=== PATIENT | female | born 1975 | race Caucasian/White ===

== ENCOUNTER 2016-10-17 21:16 | Emergency (ER) | payer OTHER ==
--- NOTE | 2016-10-17 21:25 | PDOC ---
Rapid Medical Evaluation Chief Complaint: Nausea/Vomiting Time Seen by Provider: 10/17/16 21:22 Medical Evaluation: Allergies Allergy/AdvReac Type Severity Reaction Status Date / Time No Known Allergies Allergy Verified 10/17/16 21:20 10/17/16 21:22 41 year old female with history of hypothyroidism, renal colic, and tubal ligation with two weeks of abdominal pain and cramping with nausea/vomiting and inability to eat. Symptoms proceeded by throat pain/cold symptoms. Pain worse with laying on left side. -Labs including CBC, comp, UA, serum -To Main ED for further evaluation
[2016-10-17 21:30] VITALS: BP 122/67; PULSE 87; TEMP 97.6; BMI 21.9
[2016-10-17 21:59] LABS: BASOPHIL 0.5 % (0-2.0); EOSINOPHIL 13.4 % (0-4.5); MCH 27.6 pg (25.7-33.7); MCHC 33.6 g/dl (32.0-36.0); MEAN CELL VOLUME 82.1 fl (80-96); NEUTROPHILS 40.4 % (42.8-82.8); PLATELET COUNT 284 K/MM3 (134-434); RDW 13.4 % (11.6-15.6); WHITE BLOOD COUNT 7.2 K/mm3 (4.0-10.0)
[2016-10-17 22:25] LABS: URINE APPEARANCE CLEAR; URINE BILIRUBIN NEGATIVE (NEGATIVE); URINE COLOR YELLOW; URINE GLUCOSE (UA) NEGATIVE (NEGATIVE); URINE KETONE NEGATIVE (NEGATIVE); URINE NITRITE NEGATIVE (NEGATIVE); URINE PROTEIN NEGATIVE (NEGATIVE); URINE UROBILINOGEN 2.0 E.U/dl E.U./dl (0.2-1.0)
[2016-10-17 22:29] LABS: URINE BLOOD 1+ (NEGATIVE); URINE LEUK ESTERASE TRACE (NEGATIVE)
[2016-10-17 22:39] LABS: ALBUMIN 3.8 g/dl (3.4-5.0); ALK PHOS 46 U/L (45-117); ANION GAP 10 (8-16); BILIRUBIN,TOTAL 0.3 mg/dL (0.2-1.0); CALCIUM 8.9 mg/dL (8.5-10.1); CO2 24 mmol/L (21-32); CREATININE 0.6 mg/dL (0.55-1.02); GLUCOSE,RANDOM 93 mg/dL (74-106); SGOT/AST 17 U/L (15-37); SGPT/ALT 16 U/L (12-78)
[2016-10-17 23:05] LABS: URINE BACTERIA RARE /hpf (NONE SEEN); URINE MUCUS MANY; URINE RBC 4 /hpf (0-3); URINE WBC 2 /hpf (3-5)
[2016-10-17] MEDS ORDERED: ONDANSETRON 4 MG/2 ML VIAL ONE (23:41)
[2016-10-17] MEDS ORDERED: ONDANSETRON 4 MG/2 ML VIAL IVPUSH ONE (23:45)
[2016-10-17] MEDS ORDERED: SODIUM CHLORIDE 1,000 ML IV STA (23:45)
--- NOTE | 2016-10-17 23:46 | PDOC ---
History of Present Illness - History of Present Illness Initial Comments: 10/17/16 23:46 The patient is a 41 year old female with a past medical history of hypothyroidism, renal colic, tubal ligation presents to the emergency department with a complaint of abdominal pain for two weeks. Patient noted all her symptoms began approximately two weeks ago, starting with a cold. Patient had a sore throat, runny nose. Two days after the cold had started she developed abdominal cramps and nausea. Patients cold symptoms have resolved however she continues to have persistent diffuse abdominal pain, persistent nausea and vomiting. 4-5 days ago she noticed abdominal distention . Patient reports dizziness. Denies fever, chills. Denies chest pain, shortness of breath. 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 <Joaquin Fang - Last Filed: 10/18/16 01:28> <Katiuska Knight - Last Filed: 10/19/16 00:50> - General Chief Complaint: Nausea/Vomiting Stated Complaint: STOMACH CRAMPS/VOMITING Time Seen by Provider: 10/17/16 21:22 Past History <Joaquin Fang - Last Filed: 10/18/16 01:28> - Past Medical History Anemia: No Asthma: No Cancer: No Cardiac Disorders: No CVA: No COPD: No CHF: No Dementia: No Diabetes: No GI Disorders: Yes (REFLUX, COLON POLYP) Disorders: No HTN: No Hypercholesterolemia: No Kidney Stones: Yes Liver Disease: No Seizures: No Thyroid Disease: Yes (HYPOTHYROID) - Surgical History Abdominal Surgery: No Appendectomy: No Cardiac Surgery: No Cholecystectomy: No Lung Surgery: No Neurologic Surgery: No Orthopedic Surgery: No - Immunization History Immunization Up to Date: Yes - Psycho/Social/Smoking Cessation Hx Anxiety: No Suicidal Ideation: No Smoking Status: No Smoking History: Never smoked Have you smoked in the past 12 months: No Number of Cigarettes Smoked Daily: 0 Hx Alcohol Use: No Drug/Substance Use Hx: No Substance Use Type: None Hx Substance Use Treatment: No <Katiuska Knight - Last Filed: 10/19/16 00:50> - Past Medical History Allergies/Adverse Reactions: Allergies Allergy/AdvReac Type Severity Reaction Status Date / Time No Known Allergies Allergy Verified 10/17/16 21:20 Home Medications: Ambulatory Orders Levothyroxine [Synthroid -] 88 mcg PO AM 02/26/14 Review of Systems - Review of Systems Able to Perform ROS?: Yes Comments:: 10/17/16 23:46 CONSTITUTIONAL: Absent: fever, chills, diaphoresis, generalized weakness, malaise, loss of appetite HEENT: Absent: rhinorrhea, nasal congestion, throat pain, throat swelling, difficulty swallowing, mouth swelling, ear pain, eye pain, visual Changes CARDIOVASCULAR: Absent: chest pain, syncope, palpitations, irregular heart rate, lightheadedness , peripheral edema RESPIRATORY: Absent: cough, shortness of breath, dyspnea with exertion, orthopnea, wheezing, stridor, hemoptysis GASTROINTESTINAL: Present: abdominal pain, abdominal distension, nausea, vomiting. Absent: diarrhea, constipation, melena, hematochezia GENITOURINARY: Absent: dysuria, frequency, urgency, hesitancy, hematuria, flank pain, genital pain MUSCULOSKELETAL: Absent: myalgia, arthralgia, joint swelling SKIN: Absent: rash, itching, pallor HEMATOLOGIC/IMMUNOLOGIC: Absent: easy bleeding, easy bruising, lymphadenopathy, frequent infections ENDOCRINE: Absent: unexplained weight gain, unexplained weight loss, heat intolerance, cold intolerance NEUROLOGIC: Present: dizziness. Absent: headache, focal weakness or paresthesias,unsteady gait, seizure, mental status changes, bladder or bowel incontinence PSYCHIATRIC: Absent: anxiety, depression, suicidal or homicidal ideation, hallucinations. <Joaquin Fang - Last Filed: 10/18/16 01:28> *Physical Exam - Vital Signs Last Vital Signs Temp Pulse Resp BP Pulse Ox 97.6 F 87 18 122/67 99 10/17/16 21:20 10/17/16 21:20 10/17/16 21:20 10/17/16 21:20 10/17/16 21:20 - Physical Exam Comments: 10/17/16 23:46 GENERAL: Well developed, well nourished. Awake and alert. No acute distress. HEENT: Normocephalic, atraumatic. PERRLA, EOMI. No conjunctival pallor. Sclera are non- icteric. Moist mucous membranes. Oropharynx is clear. NECK: Supple. Full ROM. No JVD. Carotid pulses 2+ and symmetric, without bruits. No thyromegaly. No lymphadenopathy. CARDIOVASCULAR: Regular rate and rhythm. No murmurs, rubs, or gallops. Distal pulses are 2+ and symmetric. PULMONARY: No evidence of respiratory distress. Lungs clear to auscultation bilaterally. No wheezing, rales or rhonchi. ABDOMINAL: Soft. scattered tenderness, worse in the RLQ. slightly distended. No rebound or guarding. No organomegaly. Normoactive bowel sounds. MUSCULOSKELETAL Normal range of motion at all joints. No bony deformities or tenderness. No CVA tenderness. EXTREMITIES: No cyanosis. No clubbing. No edema. No calf tenderness. SKIN: Warm and dry. Normal capillary refill. No rashes. No jaundice. NEUROLOGICAL: Alert, awake, appropriate. Gait is normal without ataxia. PSYCHIATRIC: Cooperative. Good eye contact. Appropriate mood and affect. <Joaquin Fang - Last Filed: 10/18/16 01:28> - Vital Signs Last Vital Signs Temp Pulse Resp BP Pulse Ox 97.6 F 87 18 122/67 99 10/17/16 21:20 10/17/16 21:20 10/17/16 21:20 10/17/16 21:20 10/17/16 21:20 <Katiuska Knight - Last Filed: 10/19/16 00:50> ED Treatment Course - LABORATORY CBC & Chemistry Diagram: 10/17/16 21:45 10/17/16 21:45 - ADDITIONAL ORDERS Additional order review: Laboratory Results 10/17/16 10/17/16 21:45 21:45 Sodium 140 Potassium 4.0 Chloride 106 Carbon Dioxide 24 Anion Gap 10 BUN 12 D Creatinine 0.6 Creat Clearance w eGFR > 60 Random Glucose 93 Calcium 8.9 Total Bilirubin 0.3 D AST 17 ALT 16 Alkaline Phosphatase 46 Total Protein 7.0 Albumin 3.8 Lipase 397 H Serum , Qual Negative Urine Color Yellow Urine Appearance Clear Urine pH 6.0 Urine Protein Negative Urine Glucose (UA) Negative Urine Ketones Negative Urine Blood 1+ H Urine Nitrite Negative Urine Bilirubin Negative Urine Urobilinogen 2.0 e.u/dl H Ur Leukocyte Esterase Trace H Urine RBC 4 Urine WBC 2 Ur Epithelial Cells Few Urine Bacteria Rare Urine Mucus Many 10/17/16 21:45 RBC 4.04 MCV 82.1 MCHC 33.6 RDW 13.4 MPV 7.0 L Neutrophils % 40.4 L D Lymphocytes % 38.0 D Monocytes % 7.7 Eosinophils % 13.4 H D Basophils % 0.5 - RADIOLOGY Radiology Studies Ordered: 10/18/16 01:28 US abdomen Coarse liver echotexture, possibly steatosis unremarkable gallbladder, right kidney and visualized aorta and pancreas. No Biliary dilation Electronically signed by Dr. Chey Edouard MD from imaging refrigeration service inspector <Joaquin Fang - Last Filed: 10/18/16 01:28> - LABORATORY CBC & Chemistry Diagram: 10/17/16 21:45 10/17/16 21:45 - ADDITIONAL ORDERS Additional order review: Laboratory Results 10/17/16 10/17/16 21:45 21:45 Sodium 140 Potassium 4.0 Chloride 106 Carbon Dioxide 24 Anion Gap 10 BUN 12 D Creatinine 0.6 Creat Clearance w eGFR > 60 Random Glucose 93 Calcium 8.9 Total Bilirubin 0.3 D AST 17 ALT 16 Alkaline Phosphatase 46 Total Protein 7.0 Albumin 3.8 Lipase 397 H Serum , Qual Negative Urine Color Yellow Urine Appearance Clear Urine pH 6.0 Urine Protein Negative Urine Glucose (UA) Negative Urine Ketones Negative Urine Blood 1+ H Urine Nitrite Negative Urine Bilirubin Negative Urine Urobilinogen 2.0 e.u/dl H Ur Leukocyte Esterase Trace H Urine RBC 4 Urine WBC 2 Ur Epithelial Cells Few Urine Bacteria Rare Urine Mucus Many 10/17/16 21:45 RBC 4.04 MCV 82.1 MCHC 33.6 RDW 13.4 MPV 7.0 L Neutrophils % 40.4 L D Lymphocytes % 38.0 D Monocytes % 7.7 Eosinophils % 13.4 H D Basophils % 0.5 - RADIOLOGY Radiology Studies Ordered: Category Date Time Status ABDOMEN US -LIMITED [US] Stat Ultrasound 10/17/16 23:36 Ordered <Katiuska Knight - Last Filed: 10/19/16 00:50> *DC/Admit/Observation/Transfer - Attestations Scribe Attestion: 10/17/16 23:47 Documentation prepared by Joaquin Fang, acting as medical coordinator pesticide use for Katiuska Knight MD <Joaquin Fang - Last Filed: 10/18/16 01:28> <Katiuska Knight - Last Filed: 10/19/16 00:50> Diagnosis at time of Disposition: Umbilical hernia - Referrals Referrals: Joseph Cardenas MD [Primary Care Provider] - Aaron Magaña MD [Staff Physician] - - Patient Instructions Printed Discharge Instructions: DI Umbilical Hernia-Child
[2016-10-18] MEDS ORDERED: SODIUM CHLORIDE 1,000 ML IV STA (02:27)
[2016-10-18] MEDS ORDERED: ONDANSETRON 4 MG/2 ML VIAL IVPUSH ONE (02:27)
[2016-10-18] MEDS ORDERED: HYDROmorphone HCL CARPU-JECT 1 MG/1 ML DISP.SYRIN IVPUSH ONE (02:27)
[2016-10-18] MEDS ORDERED: ONDANSETRON 4 MG/2 ML VIAL ONE (02:56)
[2016-10-18] MEDS ORDERED: HYDROmorphone HCL CARPU-JECT 1 MG/1 ML DISP.SYRIN ONE (02:56)
--- NOTE | 2016-10-18 03:48 | PDOC ---
*Physical Exam - Vital Signs Last Vital Signs Temp Pulse Resp BP Pulse Ox 97.6 F 87 18 122/67 99 10/17/16 21:20 10/17/16 21:20 10/17/16 21:20 10/17/16 21:20 10/17/16 21:20 ED Treatment Course - LABORATORY CBC & Chemistry Diagram: 10/17/16 21:45 10/17/16 21:45 - ADDITIONAL ORDERS Additional order review: Laboratory Results 10/17/16 10/17/16 21:45 21:45 Sodium 140 Potassium 4.0 Chloride 106 Carbon Dioxide 24 Anion Gap 10 BUN 12 D Creatinine 0.6 Creat Clearance w eGFR > 60 Random Glucose 93 Calcium 8.9 Total Bilirubin 0.3 D AST 17 ALT 16 Alkaline Phosphatase 46 Total Protein 7.0 Albumin 3.8 Lipase 397 H Serum , Qual Negative Urine Color Yellow Urine Appearance Clear Urine pH 6.0 Urine Protein Negative Urine Glucose (UA) Negative Urine Ketones Negative Urine Blood 1+ H Urine Nitrite Negative Urine Bilirubin Negative Urine Urobilinogen 2.0 e.u/dl H Ur Leukocyte Esterase Trace H Urine RBC 4 Urine WBC 2 Ur Epithelial Cells Few Urine Bacteria Rare Urine Mucus Many 10/17/16 21:45 RBC 4.04 MCV 82.1 MCHC 33.6 RDW 13.4 MPV 7.0 L Neutrophils % 40.4 L D Lymphocytes % 38.0 D Monocytes % 7.7 Eosinophils % 13.4 H D Basophils % 0.5 - Medications Given in the ED: ED Medications Discontinued Medications Generic Name Dose Route Start Last Admin Trade Name Freq PRN Reason Stop Dose Admin Hydromorphone HCl 0.5 mg 10/18/16 02:27 10/18/16 03:36 Dilaudid Injection - IVPUSH 10/18/16 02:28 Not Given ONCE ONE Sodium Chloride 1,000 mls @ 1,000 mls/hr 10/17/16 23:45 10/17/16 23:45 Normal Saline - IV 10/18/16 00:44 1,000 mls/hr ASDIR STA Administration Sodium Chloride 1,000 mls @ 1,000 mls/hr 10/18/16 02:27 10/18/16 03:36 Normal Saline - IV 10/18/16 03:26 Not Given ASDIR STA Ondansetron HCl 4 mg 10/17/16 23:45 10/17/16 23:46 Zofran Injection IVPUSH 10/17/16 23:46 4 mg ONCE ONE Administration Ondansetron HCl 4 mg 10/18/16 02:27 10/18/16 03:15 Zofran Injection IVPUSH 10/18/16 02:28 4 mg ONCE ONE Administration *DC/Admit/Observation/Transfer Diagnosis at time of Disposition: Umbilical hernia Qualifiers: Obstruction and gangrene presence: without obstruction or gangrene Qualified Code(s): K42.9 - Umbilical hernia without obstruction or gangrene - Discharge Dispostion Disposition: HOME Condition at time of disposition: Stable Admit: No - Referrals Referrals: Joseph Cardenas MD [Primary Care Provider] - Aaron Magaña MD [Staff Physician] - - Patient Instructions Printed Discharge Instructions: DI Umbilical Hernia-Child - Post Discharge Activity
[2016-10-18] MEDS ORDERED: morphine CARPU-JECT 2 MG/1 ML DISP.SYRIN ONE (04:02)
== END 2016-10-18 03:00 | disposition home or self-care (01) ==
LOC: JER 21:16
PROC: 3E033GC Introduction of Other Therapeutic Substance into Peripheral Vein, Percutaneous Approach (ICD-10-PCS; principal; 2016-10-17)
PROC: 3E0337Z Introduction of Electrolytic and Water Balance Substance into Peripheral Vein, Percutaneous Approach (ICD-10-PCS; 2016-10-17)
DX: K42.9 Umbilical hernia without obstruction or gangrene (principal); E03.9 Hypothyroidism, unspecified; Z87.442 Personal history of urinary calculi
CPT/HCPCS: 36415; 74177-TC; 76705-TC; 80053; 81003; 81015; 83690; 84703; 85025; 96361; 96374; 96376; 99283-25

== ENCOUNTER 2019-11-15 06:36 | Day surgery (SDC) | payer BC, OTHER ==
[2019-11-11 10:55] VITALS: BMI 26.6
[2019-11-15] MEDS ORDERED: SUCCINYLCHOLINE CHLORIDE 200 MG/10 ML SYRINGE ONE (08:40)
[2019-11-15] MEDS ORDERED: PROPOFOL 20 ML ONE ×2 (08:40)
[2019-11-15] MEDS ORDERED: MIDAZOLAM HCL 2 MG/2 ML SINGLE DOSE VIAL ONE (08:41)
[2019-11-15] MEDS ORDERED: BUPIVACAINE HCL/PF 2.5 MG/ML - 30 ML VIAL IJ ONE (08:46)
[2019-11-15] MEDS ORDERED: BUPIVACAINE HCL/PF 0.25% (2.5MG/ML) 10 ML VIAL IJ ONE (09:33)
[2019-11-15] MEDS ORDERED: PROMETHAZINE HCL 25 MG/1 ML VIAL IVPUSH PRN (09:51)
[2019-11-15] MEDS ORDERED: oxyCODONE HCL 5 MG TABLET PO PRN ×2 (09:51)
[2019-11-15] MEDS ORDERED: ONDANSETRON 4 MG/2 ML VIAL IVPUSH PRN (09:51)
[2019-11-15] MEDS ORDERED: PROMETHAZINE HCL 25 MG/1 ML VIAL ONE (10:17)
[2019-11-15 12:18] VITALS: BP 104/63; PULSE 70; TEMP 98
--- NOTE | 2019-11-17 16:11 | OP ---
DATE OF OPERATION: 11/15/2019 SURGEON: Jamey Mcdonald MD CABLE MOCK UP ASSEMBLER: YOANA Paul PREOPERATIVE DIAGNOSES: 1. Right knee medial and lateral meniscus tear. 2. Right knee cartilage injury. 3. Right knee synovitis. POSTOPERATIVE DIAGNOSES: 1. Right knee medial and lateral meniscus tear. 2. Right knee cartilage injury. 3. Right knee synovitis. PROCEDURE: 1. Right knee arthroscopy with partial medial and lateral meniscectomy, CPT code 86898. 2. Right knee arthroscopy with chondroplasty and abrasion plasty, CPT code 98895. 3. Right knee arthroscopy with synovectomy, CPT code 23928. FINDINGS: 1. Medial meniscus posterior horn tear to body tear, minor. 2. Lateral meniscus posterior horn tear, minor. 3. Synovitis of the medial and lateral notch area. 4. 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 5. ACL and PCL intact. 6. Lateral joint meniscus injury and grade 4 cartilage injury. 7. Inflated medial plica adhesions 3 cm x 2 cm anterior medial patellofemoral trochlea and patellofemoral joint. PROCEDURE: Informed consent was obtained. The patient came to the operating room, where the lower extremity was prepped and draped in a sterile fashion. A tourniquet was placed on the upper thigh, but not inflated. Using standard arthroscopic technique, a lateral incision and portal was made to allow for introduction of the camera into the suprapatellar bursa. This was then taken to the medial joint line, where under direct visualization, a medial incision and portal was made. Excessive synovium noted in the medial, lateral and patellofemoral and notch area was removed by an upbiter, shaver and Bovie cautery. This was found to bring in inflammatory tissue into the joint surface, a source of pain and dysfunction. Probing of the medial and lateral meniscus found tears, as described in the findings. These were removed with the upbiter and shaver and taken back to a stable rim. Grade 2 to 3 degenerative changes were treated with a chondroplasty, removing all flaking surfaces with low-setting Bovie along the periphery to prevent further flaking. Grade 4 changes, as noted, were treated with an abrasoplasty, creating a bleeding surface at the bone/cartilage interface. Aggressive debridement with shaver/damon created bleeding surface. Micro fracture also done when indicated in findings. All areas of the knee were once again reexamined. The knee was then drained and a single suture was placed in all portals. A sterile dressing was placed and the patient was transferred to the recovery room without complication. The PA listed above was present and assisted at surgery. Their presence was absolutely medically necessary for the completion of the procedure. They helped hold the arthroscopy, pass instruments (and implants when indicated) and the procedure could not have been completed without their assistance. JAMEY MCDONALD M.D. [id number]
--- NOTE | 2019-11-19 16:12 | PATH ---
Surgical Pathology Report Patient Name: ALFRED LOMBARDO [facility]. Rec. #: [id number] /Age/Gender: 1975 (Age: 44) / F Account: [id number] Location: [facility] AMBULATORY Taken: 11/15/2019 Received: 11/15/2019 Reported: 11/19/2019 Physicians: Jamey Riggins M.D. Specimen(s) Received RIGHT KNEE SHAVINGS Clinical History Internal derangement right knee Final Diagnosis KNEE SHAVINGS, RIGHT, ARTHROSCOPY: FRAGMENTS OF CARTILAGE, DENSE FIBROCONNECTIVE TISSUE, ADIPOSE TISSUE, AND REACTIVE SYNOVIUM. Electronically Signed Yolis Priest M.D. Gross Description Received in formalin, labeled "right knee shavings," is a 4.0 x 2.5 x 0.3 cm. aggregate of breaux-yellow soft tissue fragments. The formalin is filtered and the specimen is entirely submitted in one cassette. /11/18/2019 saudi/11/18/2019
== END 2019-11-15 12:18 | disposition home or self-care (01) ==
LOC: FASU 06:36
PROVIDERS: ATTEND Orthopaedic Surgery
PROC: 0SBC4ZZ Excision of Right Knee Joint, Percutaneous Endoscopic Approach (ICD-10-PCS; 2019-11-15)
PROC: 0SBC4ZZ Excision of Right Knee Joint, Percutaneous Endoscopic Approach (ICD-10-PCS; 2019-11-15)
PROC: 0SBC4ZZ Excision of Right Knee Joint, Percutaneous Endoscopic Approach (ICD-10-PCS; principal; 2019-11-15 09:16)
DX: S83.241A Other tear of medial meniscus, current injury, right knee, initial encounter (principal); S83.281A Other tear of lateral meniscus, current injury, right knee, initial encounter; S83.8X1A Sprain of other specified parts of right knee, initial encounter; M65.861 Other synovitis and tenosynovitis, right lower leg; X58.XXXA Exposure to other specified factors, initial encounter; Y93.9 Activity, unspecified; Y92.9 Unspecified place or not applicable
CPT/HCPCS: 84703; 88304-TC; 94760

== ENCOUNTER 2021-06-14 18:51 | Emergency (ER) | payer BC, OTHER ==
[2021-06-14 19:08] VITALS: BP 106/68; PULSE 84; TEMP 98.5; BMI 26.6
[2021-06-14 19:24] LABS: HCG,QUALITATIVE URINE Negative
[2021-06-14 19:49] LABS: EPITHELIAL CELLS FEW /hpf
[2021-06-14] MEDS ORDERED: SODIUM CHLORIDE 1,000 ML IV STA (20:05)
[2021-06-14] MEDS ORDERED: PANTOPRAZOLE SODIUM 40 MG VIAL IVPB ONE (20:05)
[2021-06-14] MEDS ORDERED: PANTOPRAZOLE SODIUM 40 MG VIAL ONE (20:08)
[2021-06-14 20:58] LABS: ALBUMIN 4.1 g/dl (3.4-5.0); BILIRUBIN,TOTAL 0.4 mg/dl (0.2-1); CALCIUM 9.2 mg/dl (8.5-10); CREATININE 0.6 mg/dl (0.55-1.3); TOT PROT 7.2 g/dl (6.4-8.2)
[2021-06-14] MEDS ORDERED: KETOROLAC TROMETHAMINE 30 MG/1 ML VIAL IVPUSH ONE (22:48)
[2021-06-14] MEDS ORDERED: KETOROLAC TROMETHAMINE 30 MG/1 ML VIAL ONE (22:50)
[2021-06-14 23:03] LABS: EOS % 1.9 % (0-4.5); WHITE BLOOD COUNT 7.8 K/mm3 (4.0-10.0)
[2021-06-14 23:05] LABS: BASO % 0.5 % (0-2.0); HEMATOCRIT 33.3 % (32.4-45.2); HEMOGLOBIN 11.4 GM/dL (10.7-15.3); LYMPH % 36.2 % (8-40); MCH 26.7 pg (25.7-33.7); MCHC 34.1 g/dl (32.0-36.0); MEAN CELL VOLUME 78.3 fl (80-96); MEAN PLT VOLUME 7.5 fl (7.5-11.1); NEUT % 53.4 % (42.8-82.8); PLATELET COUNT 316 10^3/uL (134-434); RBC 4.26 M/mm3 (3.60-5.2); RDW 15.3 % (11.6-15.6)
[2021-06-14] MEDS ORDERED: ACETAMINOPHEN 1000 MG/100 ML BAG IVPB ONE (23:35)
== END 2021-06-15 00:15 | disposition home or self-care (01) ==
LOC: FER 18:51
PROC: 3E0333Z Introduction of Anti-inflammatory into Peripheral Vein, Percutaneous Approach (ICD-10-PCS; principal; 2021-06-14)
PROC: 3E0333Z Introduction of Anti-inflammatory into Peripheral Vein, Percutaneous Approach (ICD-10-PCS; 2021-06-14)
PROC: 3E033GC Introduction of Other Therapeutic Substance into Peripheral Vein, Percutaneous Approach (ICD-10-PCS; 2021-06-14)
PROC: 3E0337Z Introduction of Electrolytic and Water Balance Substance into Peripheral Vein, Percutaneous Approach (ICD-10-PCS; 2021-06-14)
DX: N83.201 Unspecified ovarian cyst, right side (principal)
CPT/HCPCS: 36415; 74177-TC; 80053; 81003; 81015; 84703; 85025; 87086; 87186; 99285-25; Q9967

== ENCOUNTER 2023-04-07 18:09 | Emergency (ER) | payer BC ==
[2023-04-07 18:14] VITALS: BP 109/66; PULSE 86; RESP 16; TEMP 97.8; BMI 29.7
[2023-04-07] MEDS ORDERED: LIDOCAINE 5% TOPICAL PATCH TP ONE (19:16)
[2023-04-07] MEDS ORDERED: IBUPROFEN 600 MG TABLET (FP) PO ONE ×2 (20:03→20:32)
[2023-04-07] MEDS ORDERED: LIDOCAINE 5% TOPICAL PATCH ONE (20:32)
[2023-04-08] MEDS ORDERED: LIDOCAINE PATCH REMOVAL MC SCH (07:00)
== END 2023-04-07 22:25 | disposition home or self-care (01) ==
LOC: FER 18:09
DX: M25.562 Pain in left knee (principal); S80.912A Unspecified superficial injury of left knee, initial encounter; W18.39XA Other fall on same level, initial encounter
CPT/HCPCS: 73560-TC-LT-FY; 93971-TC; 99284-25

== ENCOUNTER 2023-11-17 04:43 | Day surgery (SDC) | payer BC ==
[2023-11-14 14:59] VITALS: BMI 28.1
[2023-11-17] MEDS ORDERED: PROMETHAZINE HCL 25 MG/1 ML VIAL IVPB PRN (08:58)
[2023-11-17] MEDS ORDERED: ONDANSETRON 4 MG/2 ML VIAL IVPUSH PRN (08:58)
[2023-11-17] MEDS ORDERED: oxyCODONE HCL 5 MG TABLET PO PRN (08:58)
[2023-11-17] MEDS ORDERED: LACTATED RINGERS SOLUTION 1,000 ML IV SCH (09:00)
[2023-11-17] MEDS ORDERED: PROPOFOL 20 ML ONE (09:13)
[2023-11-17] MEDS ORDERED: MIDAZOLAM HCL 2 MG/2 ML SINGLE DOSE VIAL ONE (09:13)
[2023-11-17] MEDS ORDERED: LIDOCAINE HCL/PF 2% SDV 5ML VIAL ONE (09:14)
[2023-11-17] MEDS ORDERED: DEXAMETHASONE SOD PHOSPHATE 4 MG/1 ML VIAL ONE (09:35)
[2023-11-17] MEDS ORDERED: KETOROLAC TROMETHAMINE 30 MG/1 ML VIAL ONE (09:35)
[2023-11-17] MEDS ORDERED: METOCLOPRAMIDE HCL INJECTION 10 MG/2 ML VIAL ONE (09:35)
[2023-11-17] MEDS ORDERED: ACETAMINOPHEN INJECTION 100 ML IVPB ONE (09:39)
[2023-11-17] MEDS ORDERED: ceFAZolin SODIUM 1 GM VIAL ONE (09:43)
[2023-11-17] MEDS ORDERED: SODIUM CHLORIDE 0.9% P/F 10 ML VIAL IJ ONE (09:43)
[2023-11-17] MEDS ORDERED: ONDANSETRON *ODT* 4 MG TABLET ONE (12:21)
[2023-11-17 17:17] VITALS: RESP 20; TEMP 97.3
[2023-11-17 17:30] VITALS: BP 112/75; PULSE 62
== END 2023-11-17 12:37 | disposition home or self-care (01) ==
LOC: JASU-SURG 04:43
PROVIDERS: ATTEND Obstetrics & Gynecology
PROC: 0UB98ZZ Excision of Uterus, Via Natural or Artificial Opening Endoscopic (ICD-10-PCS; principal; 2023-11-17 09:00)
PROC: 0UBM0ZZ Excision of Vulva, Open Approach (ICD-10-PCS; 2023-11-17 09:00)
DX: N92.0 Excessive and frequent menstruation with regular cycle (principal); D25.0 Submucous leiomyoma of uterus; N90.7 Vulvar cyst
CPT/HCPCS: 81025; 86850; 86900; 86901; 88305-TC; 94760; J0131; Q0162